=== PATIENT | male | born 1955 | race Caucasian/White ===

== ENCOUNTER 2017-06-15 15:06 | Inpatient (IN) | payer OTHER ==
[2017-06-15] MEDS ORDERED: Magnesium Sulfate 2 GM/100 ML BAG ONE (16:03)
[2017-06-15] MEDS ORDERED: Dexamethasone 10 MG/ML VIAL ONE (16:03)
[2017-06-15] MEDS ORDERED: ISOVUE-370 76%-LOCM 1 ML ONE (16:12)
[2017-06-15] MEDS ORDERED: Albuterol Sulfate 2.5 mg/3 ml Neb ONE (16:16)
[2017-06-15 16:34] LABS: #Eosinphils 0.3 thou/uL (0.0-0.7); #Lymphocytes 0.8 thou/uL (1.20-3.40); #Monocytes 0.4 thou/uL (0.11-0.59); #Neutrophils 6.5 thou/uL (1.40-6.50); %Basophils 0.1 % (0.0-1.0); %Eosinophils 4.1 % (0.0-10.0); %Lymphocytes 9.9 % (21.0-51.0); %Monocytes 4.9 % (0.0-10.0); Hematocrit 46.6 % (42.0-52.0); Mean Platelet Volume 8.7 fL (7.4-10.4); Red Blood Cell (RBC) Count 4.89 mill/uL (4.70-6.10); White Blood Cell (WBC) Count 8.1 thou/uL (4.8-10.8)
[2017-06-15 16:41] LABS: Modified Allen's Test NOT DONE; PIP 10 cmH2O; Sodium 141 mmol/L (135-148); Vent NO
[2017-06-15 16:42] LABS: Mode MASK BIPAP; Pressure Support 5 cmH2O
--- NOTE | 2017-06-15 16:43 | RAD ---
RADIOGRAPH CHEST 1 VIEW: Date: 06/15/17 Time: 1531 HOURS HISTORY: 61-year-old male with dyspnea. COMPARISON: 05/16/17. FINDINGS: There is a new subtle finding of a slightly shaggy left hemidiaphragm, and mild streaky densities at the retrocardiac portion of the left lower lobe base. No cardiomegaly, pulmonary edema, pulmonary v ascular engorgement, or pneumothorax. No consolidation in the right lung. IMPRESSION: 1. New mild streaky densities at the left lower lobe base, nonspecific. 2. Recommend follow-up. EVANGELISTA [] POS: JEF
[2017-06-15 16:54] LABS: ALT (SGPT) 130 U/L (8-55); AST (SGOT) 77 U/L (5-34); Alkaline Phosphatase 68 U/L (40-150); Anion Gap 16 mmol/L (10-20); BUN (Urea Nitrogen) 12 mg/dL (8.4-25.7); Bilirubin, Total 0.8 mg/dL (0.2-1.2); Calc. Creatinine Clearance 0 mL/min (70-130); Calcium 9.1 mg/dL (7.8-10.44); Carbon Dioxide 25 mmol/L (22-29); Chloride 103 mmol/L (98-107); Estimated GFR-MDRD Greater than 90; Globulin 3.5 g/dL (2.4-3.5); Protein, Total 7.6 g/dL (6.0-8.3)
[2017-06-15 16:59] LABS: Troponin I Less than 0.010 ng/mL (< 0.028)
[2017-06-15] MEDS ORDERED: Acetaminophen 650 MG Suppository PR PRN (22:26)
--- NOTE | 2017-06-15 22:46 | CT ---
CTA THORAX WITH CONTRAST: 06/15/2017 (Computed Tomographic Angiography, chest (noncoronary) with contrast material, and image post proces sing) (PE protocol) HISTORY: A 61-year-old male with respiratory distress, dyspnea, and chest pain, with hypoxemia. TECHNIQUE: IV injection of iodinated contrast: Isovue. Scan acquisition timing attempted to coincide with iodinated contrast bolus reaching maximal density in pulmonary arteries. 3D MIP reconstructions. FINDINGS: No thoracic aortic aneurysm or dissection. No pulmonary thromboembolism. Small pericardial effusio n. No pleural effusion or pneumothorax. A posterior rind of air space densities abutting the poste rior-inferior pleural surfaces, in the lower lobes bilaterally, consistent with atelectasis. Anothe r transversely oriented band of atelectasis from the superior segment of the right lower lobe extend ing to the posterior base. No pulmonary edema. The trachea and the left and right main bronchi are patent and clear. No mediastinal or hilar lymphadenopathy. Several bilateral nonspecific thyroid nodules, right greater than left. Incidental finding of a dilated, midline superficial vein in the anterior neck. IMPRESSION: 1. No pulmonary thromboembolism. 2. Bilateral lower lobe subsegmental atelectasis. 3. Small pericardial effusion. jn[] POS: JEF
--- NOTE | 2017-06-15 23:21 | HP ---
PRIMARY CARE PROVIDER: [facility]. CHIEF COMPLAINT: Shortness of breath. HISTORY OF PRESENT ILLNESS: Mr. Tate is a pleasant 61-year-old gentleman, an inmate of the senior living, who was seen in the emergency room at [facility] on 06/15/2017. He reports having shortness of breath over the last 3 days. He reports that it has been progressive ly worsening. He denies any orthopnea or paroxysmal nocturnal dyspnea. He reports shortness of darby ath with exertion. He denies any chest pain. He denies any nausea, vomiting or diarrhea. He repor ts cough that is nonproductive. He denies any fevers or chills. His room air oxygen saturation was reportedly 85%. REVIEW OF SYSTEMS: The following complete review of systems was negative, unless otherwise mentione d in the HPI or below: Constitutional: Weight loss or gain, sense of well-being, ability to conduct usual activities, exer cise tolerance. Skin/Breast: Rash, itching, changes in hair growth or loss, nail changes, breast lumps, tenderness, swelling, nipple discharge. Eyes: Vision, double vision, tearing, blind spots, pain. ENT/Mouth: Headaches (location, time of onset, duration, precipitating factors), vertigo, lighthead edness, injury. Vision, double vision, tearing, blind spots, pain, nose bleeding, colds, obstruction , discharge, dental difficulties, gingival bleeding, dentures, neck stiffness, pain, tenderness, mas ses in thyroid or other areas. Cardiovascular: Precordial pain, substernal distress, palpitations, syncope, dyspnea on exertion, o rthopnea, nocturnal paroxysmal dyspnea, edema, cyanosis, hypertension, heart murmurs, varicosities, phlebitis, claudication. Respiratory: Pain, shortness of breath, wheezing, stridor, cough, hemoptysis, fever or night sweats . Gastrointestinal: Poor appetite, dysphagia, indigestion, abdominal pain, heartburn, eructation, will sea, vomiting, hematemesis, jaundice, constipation, or diarrhea, abnormal stools (sheba-colored, lakia y, bloody, greasy, foul smelling), flatulence, hemorrhoids, recent changes in bowel habits. Genitourinary: Urgency, frequency, dysuria, nocturia, hematuria, polyuria, oliguria, unusual (or ch mani in) color of urine, stones, hesitancy, change in size of stream, dribbling, acute retention or incontinence, libido, potency. Musculoskeletal: Pain, swelling, redness or heat of muscles or joints, limitation, of motion, muscu lar weakness, atrophy, cramps. Neurologic/Psychiatric: Convulsions, paralyses, tremor, incoordination, paresthesias, difficulties with memory of speech, sensory or motor disturbances, or muscular coordination (ataxia, tremor), emo tional problems, anxiety, depression, previous psychiatric care, unusual perceptions, hallucinations . Allergy/Immunologic: Skin rash, anemia, bleeding tendency, polydipsia, polyuria, intolerance to hea t or cold. PAST MEDICAL HISTORY: Significant for hypertension and cerebrovascular accident x3. He also report s having a history of chronic obstructive pulmonary disease. PAST SURGICAL HISTORY: None. PSYCHIATRIC HISTORY: Anxiety, bipolar disorder, and depression. SOCIAL HISTORY: The patient smokes 1 pack of cigarettes a day. He denies alcohol use or recreation al drug use. FAMILY HISTORY: He reports that his mother had heart disease. ALLERGIES: No known drug allergies. CURRENT MEDICATIONS: Include aspirin 81 mg daily, atorvastatin 40 mg daily, carvedilol 12.5 mg 2 ti mes a day, hydrochlorothiazide 25 mg daily, albuterol inhalation p.r.n., QVAR 80 mcg puff 2 times a day. PHYSICAL EXAMINATION: GENERAL: On examination, Mr. Tate is awake and alert, not in acute distress. VITAL SIGNS: Blood pressure is 129/82, pulse is 90. He is breathing at rate of 20 and saturating 9 6% on BiPAP. He is afebrile. EYES: No scleral icterus, no conjunctival pallor. ENT: Moist mucosal membranes, no oropharyngeal erythema or exudates. NECK: Supple, nontender, normal range of movement. Trachea is midline. RESPIRATORY: Accessory muscles of breathing are mildly active. Chest wall movements are symmetric bilaterally. LUNGS: Examination reveals diminished breath sounds at both bases, with occasional expiratory wheez es in the upper lung zones. CARDIOVASCULAR: S1 and S2 are heard, regular. Peripheral pulses palpable. No carotid bruit, no pe ricardial rub. MUSCULOSKELETAL: Power is 5/5 in all 4 extremities. Normal range of movement at all major extremit y joints. SKIN: No rashes or subcutaneous nodules. The patient has multiple tattoos. NEUROLOGIC: Cranial nerves II-XII are intact, deep tendon reflexes are 2+. PSYCHIATRIC: Normal mood, normal affect, patient is oriented to person, place and time. LYMPHATIC: No cervical lymphadenopathy. LABORATORY DATA: Mr. Tate's labs and investigations were reviewed. I reviewed his electrocardiog tamar, which shows normal sinus rhythm, no ST changes to suggest an acute coronary syndrome. I also r eviewed his chest x-ray, which does not show any pulmonary infiltrates. He also had a CT angiogram of the chest, report is pending. Laboratory investigation show an unremarkable CBC, elevated AST of 77, elevated ALT of 130, elevated glucose of 162, otherwise normal comprehensive metabolic profile, normal troponin I and normal BNP of less than 10. Arterial blood gases show pH of 7.34, pCO2 of 54 .2 and pO2 of 72.7. ASSESSMENT AND PLAN: Mr. Tate is a pleasant 61-year-old gentleman who was seen at [facility]. His problem list includes: 1. Acute respiratory failure: Hypercapnic and hypoxic, most likely secondary to chronic obstructiv e pulmonary disease exacerbation. Mr. Tate will be admitted to the hospital and treated for the s abena. 2. Chronic obstructive pulmonary disease exacerbation: He will be treated with bilevel positive ai rway pressure as needed, oxygen as needed, steroids and bronchodilators. Pulmonology service will b e consulted for help with further management. 3. Hypertension: Resume home medications, monitor vital signs and titrate antihypertensives as nee ded. 4. Abnormal liver function tests: Isolated transaminitis, check CK to rule out rhabdomyolysis. LEVEL OF RISK: High. LEVEL OF COMPLEXITY: High.
[2017-06-16] MEDS: Nicotine 21 MG PATCH TD SCH ×2 (00:16→22:30)
[2017-06-16 00:51] VITALS: BMI 29.0
[2017-06-16] MEDS: Diabetic Tussin 200 MG/10 ML UDCUP PO PRN ×4 (01:21→19:05)
[2017-06-16] MEDS: Acetaminophen 325 MG TAB PO PRN ×2 (02:33→19:05)
[2017-06-16 05:00] LABS: #Basophils 0.1 thou/uL (0.0-0.2); #Lymphocytes 0.8 thou/uL (1.20-3.40); #Monocytes 0.3 thou/uL (0.11-0.59); #Neutrophils 6.1 thou/uL (1.40-6.50); %Eosinophils 0.3 % (0.0-10.0); %Lymphocytes 11.6 % (21.0-51.0); Hematocrit 45.1 % (42.0-52.0); Mean Platelet Volume 8.4 fL (7.4-10.4); Red Blood Cell (RBC) Count 4.73 mill/uL (4.70-6.10); White Blood Cell (WBC) Count 7.3 thou/uL (4.8-10.8)
[2017-06-16 05:20] LABS: Anion Gap 13 mmol/L (10-20); BUN (Urea Nitrogen) 16 mg/dL (8.4-25.7); Calc. Creatinine Clearance 139 mL/min (70-130); Calcium 9.5 mg/dL (7.8-10.44); Carbon Dioxide 24 mmol/L (22-29); Chloride 104 mmol/L (98-107); Estimated GFR-MDRD Greater than 90
[2017-06-16] MEDS ORDERED: Nitroglycerin 0.4 MG TAB (25 Tab Bottle) SL PRN (07:26)
--- NOTE | 2017-06-16 07:34 | PDOC.PN ---
- Subjective Encounter Start Date: 06/16/17 Encounter Start Time: 07:32 Mr. Tate is breathing better today, but he says he still feels like he has " fluid " on his lungs. - Objective MAR Reviewed: Yes Vital Signs & Weight: Vital Signs (12 hours) Temp Pulse Resp BP BP Pulse Ox 06/16/17 04:00 99.0 F 101 H 18 123/56 L 100 06/16/17 01:19 105 H 20 100 06/15/17 23:45 86 20 138/83 97 06/15/17 23:30 98.8 F 92 20 99 06/15/17 23:00 98.8 F 92 20 158/103 H 100 Weight Weight 220 lb 8 oz I&O: 06/15/17 06/16/17 06/17/17 06:59 06:59 06:59 Intake Total 900 Output Total 775 Balance 125 Result Diagrams: 06/16/17 04:52 06/16/17 04:52 Phys Exam - Physical Examination HEENT: PERRLA Respiratory: wheezing present + expiratory wheezing in all lung guzman Cardiovascular: RRR, no significant murmur Gastrointestinal: soft, non-tender, positive bowel sounds Musculoskeletal: no edema Dx/Plan (1) Acute on chronic respiratory failure with hypoxia and hypercapnia Code(s): J96.21 - ACUTE AND CHRONIC RESPIRATORY FAILURE WITH HYPOXIA; J96.22 - ACUTE AND CHRONIC RESPIRATORY FAILURE WITH HYPERCAPNIA Status: Acute (2) COPD exacerbation Code(s): J44.1 - CHRONIC OBSTRUCTIVE PULMONARY DISEASE W (ACUTE) EXACERBATION Status: Acute (3) Hypertension Code(s): I10 - ESSENTIAL (PRIMARY) HYPERTENSION Status: Acute - Plan * Acute on chronic Respiratory failure- patient feels clinically improved- but still significant wheezing * Will cut back his steroids a bit * Continue Levaquin and Duonebs * HTN- blood pressure is controlled- re-start his home medications.
[2017-06-16] MEDS: Hydrochlorothiazide 25 MG TAB PO SCH (08:20)
[2017-06-16] MEDS: Atorvastatin Calcium 40 MG TAB PO SCH (08:20)
[2017-06-16] MEDS: Aspirin 81 mg Enteric Coated Tablet PO SCH (08:20)
[2017-06-16] MEDS: Enoxaparin Sodium 40 MG/0.4 ML SYRINGE SC SCH (08:23)
[2017-06-16] MEDS ORDERED: Ketorolac Tromethamine 30 MG/ML VIAL IVP SCH (09:45)
[2017-06-16] MEDS ORDERED: Furosemide 20 MG/2 ML VIAL SLOW IVP SCH (12:00)
--- NOTE | 2017-06-16 13:58 | CON ---
DATE OF CONSULTATION: 06/16/2017 SERVICE: Pulmonary Medicine. REASON FOR CONSULTATION: COPD exacerbation. HISTORY OF PRESENT ILLNESS: The patient is a 61-year-old white male with past medical history signi ficant for tobacco abuse. He has greater than [id number] history of smoking. He was in his usual state of health until roughly 3 days prior to admission. He started having increasing dyspnea with exertion, orthopnea, or cough. This is a nonproductive cough. He denies any recent sick contacts. He was not having any fevers, chills, nausea, vomiting or diarrhea. He had no rashes or arthralgi as. PAST MEDICAL HISTORY: 1. COPD. 2. History of CVA x3. 3. Hypertension. 4. Coronary artery disease. PAST SURGICAL HISTORY: None. SOCIAL HISTORY: He has a [id number] history of smoking and continues to smoke one pack per day. Denies any alcohol or illicit drug use. FAMILY HISTORY: Noncontributory. ALLERGIES: No known drug allergies. MEDICATIONS: List of his inpatient medications were reviewed. Multiple updates were made. REVIEW OF SYSTEMS: General, head, ears, eyes, nose, throat, cardiovascular, respiratory, GI, , mu sculoskeletal, neurologic and skin is negative except as mentioned in the HPI. PHYSICAL EXAMINATION: VITAL SIGNS: Afebrile, pulse 100, blood pressure 139/77, respirations 20, saturation 100% on 2 lite rs nasal cannula. GENERAL: Patient is awake, alert, no apparent distress. LUNGS: Decent air entry. There is prolonged expiratory phase. Travis both crackles and wheezing. No rhonchi. HEART: Normal rate, regular. ABDOMEN: Soft, nontender, nondistended. Bowel sounds positive. MUSCULOSKELETAL: No cyanosis or clubbing. There is 1+ pitting in the bilateral lower extremities. GENITOURINARY: No Burton catheter in place. NEUROLOGIC: Grossly nonfocal. LABORATORY DATA: WBC 7.3, hemoglobin 15.3, platelets 156,000. PH 7.34, pCO2 of 54, pO2 72 on 70% F iO2 at that time. Basic metabolic profile is otherwise unremarkable. CK is normal. Troponin is ne gative x1. BNP is below the assay limit of 10. AST and ALT are marginally elevated, but we have no priors for comparison. Liver function studies are otherwise unremarkable. Blood culture x2 and in fluenza A and B is unremarkable. IMAGING: CT of the chest demonstrates no evidence of acute cardiopulmonary abnormality. There is n o evidence of a pulmonary embolism. There is minimal subsegmental atelectasis. There is minimal pe ricardial effusion identified. ASSESSMENT: 1. Acute hypoxic and hypercapnic respiratory failure. 2. Chronic obstructive pulmonary disease with acute exacerbation. 3. Minimal volume overload state despite negative BNP. PLAN: We will give the patient a dose of Lasix. He can continue this in the outpatient setting on a p.r.n. basis. In the outpatient setting, he is on Qvar. This is an inhaled steroid and truthfull y not indicated for people who only have COPD. This is really more of an asthma drug. As such, I t hink it is reasonable to switch him over to something like Dulera and/or Symbicort in the outpatient setting. He can continue using his albuterol as previously directed. Antibiotics will be deescala ricky to oral medication. Steroids will be deescalated to once daily oral medication limited to 5 day s. I will give him a single dose of Lasix today and tomorrow morning. In the outpatient setting, daphne lamas should have a p.r.n. dose of Lasix whenever his legs start to swell to touch. I have counseled jose a day to discontinue smoking and restrict salt intake.
[2017-06-16] MEDS ORDERED: FLU VACC QS2017-18 36 mo. & older 0.5 ML SYRINGE IM ONE (21:00)
[2017-06-17 07:44] VITALS: BP 131/76; TEMP 97.8
[2017-06-17] MEDS ORDERED: predniSONE 20 MG TAB PO SCH (08:00)
[2017-06-17] MEDS: Hydrochlorothiazide 25 MG TAB PO SCH (08:55)
[2017-06-17] MEDS: Enoxaparin Sodium 40 MG/0.4 ML SYRINGE SC SCH (08:55)
[2017-06-17] MEDS: Aspirin 81 mg Enteric Coated Tablet PO SCH (08:55)
[2017-06-17] MEDS: Atorvastatin Calcium 40 MG TAB PO SCH (08:56)
[2017-06-17] MEDS: Diabetic Tussin 200 MG/10 ML UDCUP PO PRN (10:49)
--- NOTE | 2017-06-17 12:15 | PRG ---
DATE OF SERVICE: 06/17/2017 SERVICE: Pulmonary Medicine. INTERVAL HISTORY: The patient is doing outstanding from a respiratory standpoint. He feels that hi s breathing is much improved. He continues to cough, but he does not bring up anything. There was no fever or other overnight events. He is hoping to go back to his unit today because he is tired o f wearing shackles while he was in our hospital. He is looking forward to being released from retirement on 07/02/2017. PHYSICAL EXAMINATION: VITAL SIGNS: Afebrile, pulse 68, blood pressure 131/76, respirations 16, saturation 100% on room ai r. GENERAL: Patient is awake, alert, no apparent distress. LUNGS: Decent air entry. Dependent crackles are still present with a prolonged expiratory phase. Wheezing is much improved as is the air entry. HEART: Normal rate and regular. ABDOMEN: Soft, nontender, and nondistended. Bowel sounds positive. MUSCULOSKELETAL: No cyanosis or clubbing. There is trace pitting in the bilateral lower extremitie s. GENITOURINARY: No Burton catheter. NEUROLOGIC: Grossly nonfocal. LABORATORY DATA: Blood cultures x2 and Influenza A and B are unremarkable. ASSESSMENT: 1. Acute hypoxic and hypercapnic respiratory failure, resolved. 2. Chronic obstructive pulmonary disease with acute exacerbation. 3. Minimal volume overload despite negative BNP. PLAN: The patient can be discharged from the hospital today. He will need 5 days of steroids, 5 da ys of p.o. antibiotics. The QVAR should be discontinued on discharge. He should be initiated on Sy mbicort 160/4.5 two puffs twice daily. I would also like for him to use Lasix on an as needed basis . He has been counseled to discontinue all salt intake. He did have volume overload despite the fa ct that BNP was unremarkable and he seem to make his most robust recovery after taking a dose of Las ix. I will continue to follow if he remains inhouse, but from purely respiratory standpoint, he is stable for dismissal.
--- NOTE | 2017-06-17 13:26 | DIS ---
DATE OF ADMISSION: 06/15/2017 DATE OF DISCHARGE: 06/17/2017 PRIMARY CARE PHYSICIAN: [facility] call admission. DISCHARGE DISPOSITION: [facility]. PRIMARY DISCHARGE DIAGNOSES: 1. Acute hypoxic and hypercapnic respiratory failure, improved. 2. Chronic obstructive pulmonary disease with acute exacerbation, controlled. 3. Mild volume overload. SECONDARY DISCHARGE DIAGNOSES: Chronic obstructive pulmonary disease, coronary artery disease, dyslipidemia, tobacco abuse disorder, and hypertension. PRIMARY PROCEDURE/OPERATION: None. RADIOLOGICAL INVESTIGATION: Chest x-ray showed no acute cardiopulmonary process. CT angio was negative for pulmonary embolism. SIGNIFICANT LABS: WBC 7.3, hemoglobin 15.3, platelets 156. Sodium 137, potassium 3.9, BUN 16, creatinine 0.80. CK 232. Cardiac enzymes negative. BNP less than 10. LFT abnormal with AST 33, ALT 130, alkaline phosphatase 68. Blood culture negative, influenza negative. DISCHARGE MEDICATIONS: Ventolin nebulization q.6 hourly p.r.n., albuterol inhaler 2 puffs q.6 hourly p.r.n., aspirin 81 mg p.o. daily, Lipitor 40 mg p.o. daily, hydrochlorothiazide 25 mg p.o. daily, Levaquin 750 mg p.o. daily for 7 days, Dulera 2 puffs inhalation b.i.d., nitroglycerin 0.4 mg sublingual p.r.n., prednisone 40 mg p.o. daily for 1 week, then 20 mg p.o. daily for 1 week, then 10 mg p.o. daily for 1 week, then stop. CONTRAINDICATIONS: None. CODE STATUS: FULL CODE. INPATIENT CONSULTANTS: Dr. Lowery was following while in hospital. TEST RESULTS PENDING ON DISCHARGE: None. ALLERGIES: No known drug allergy. DISCHARGE PLAN: Post hospital, the patient will follow up with primary care physician at [facility]. HOSPITAL COURSE: A 61-year-old male who was admitted by Dr. Dia, please see his H and P for further detail. This patient is from [facility] and he was having increasing shortness of breath and that is why he came to the emergency room. He was having acute hypoxic respiratory failure with oxygen saturation was in 85 %. Patient's clinical presentation was consistent with chronic obstructive pulmonary disease flare-up. He was also having mild fluid overload and that was treated with Lasix. Dr. Lowery was consulted while in hospital who is our plastics and composites inspector and he recommended to discontinue QVAR therapy and rather starting on Dulera. We prescribed tapering doses of prednisone. His hypoxia completely resolved. He is currently on room air. He is given instruction about how to use the inhalers. He had mild LFT abnormality that may be related with statin and that is why we advised this patient to follow up with primary care physician and recheck LFT. If LFT is going worse, then his statin therapy can be temporarily discontinued. Otherwise, currently patient is asymptomatic. Dr. Lowery cleared him for discharge. The patient is seen and examined at bedside today. PHYSICAL EXAMINATION: VITAL SIGNS: Currently, temperature 97.8, pulse 68, respiratory rate 16, saturation 94% on room air, blood pressure 131/76, weight 220 pounds. GENERAL: The patient is currently alert, awake, in no acute distress. HEAD: Normocephalic, atraumatic. LUNGS: Clear. CARDIAC: S1, S2 regular without any murmur. ABDOMEN: Soft and benign. EXTREMITIES: No edema. NEUROLOGIC: Nonfocal examination. Overall, the patient is medically stable for discharge today. Total time spent on discharge day more than 30 minutes. MTDD
== END 2017-06-17 14:46 | DRG 189 ==
LOC: ERS 15:06 → IMCU/EMU 20:52 → T4-B 06-16 16:44
PROVIDERS: ADMIT Internal Medicine; ATTEND Internal Medicine
DX: J96.01 Acute respiratory failure with hypoxia (principal); J44.1 Chronic obstructive pulmonary disease with (acute) exacerbation; I10 Essential (primary) hypertension; J96.02 Acute respiratory failure with hypercapnia; E87.70 Fluid overload, unspecified; I25.10 Atherosclerotic heart disease of native coronary artery without angina pectoris; E78.5 Hyperlipidemia, unspecified; F17.210 Nicotine dependence, cigarettes, uncomplicated; R94.5 Abnormal results of liver function studies; Z86.73 Personal history of transient ischemic attack (TIA), and cerebral infarction without residual deficits; Z82.49 Family history of ischemic heart disease and other diseases of the circulatory system
CPT/HCPCS: 36415; 71010; 71275; 80048; 80053; 82553; 82805; 83880; 84484; 85025; 87040; 93005; 94640; 94660; 96365; 96366; 96367; 96375; A4216; J1100; J1650; J1885; J1956; J3475; J7506; J7611; J7620